=== PATIENT | female | born 1990 | race Caucasian/White ===

== ENCOUNTER 2023-06-21 15:02 | Emergency (ER) | payer BC, SELFPAY ==
[2023-06-21 15:19] VITALS: BP 118/74; PULSE 85; RESP 16; TEMP 37.4; O2SAT 100
--- NOTE | 2023-06-21 15:39 | ED.EAR ---
HPI - Ear Problem General Chief complaint: Ear Stated complaint: Left Ear Irritation Time Seen by Provider: 06/21/23 15:08 Source: patient Mode of arrival: ambulatory Limitations: no limitations History of Present Illness HPI Narrative: Alla is a 32-year-old female patient presenting to the clinic today with complaints of left ear pain x2 weeks. She has been trying to to clean out her ears as she thinks she has a cerumen impaction. Related Data Home Medications Medication Instructions Recorded Confirmed buspirone 15 mg tablet 15 mg PO BID 06/21/23 06/21/23 dextroamphetamine-amphetamine ER 30 mg PO DAILY 06/21/23 06/21/23 30 mg 24hr capsule,extend release Allergies Allergy/AdvReac Type Severity Reaction Status Date / Time No Known Allergies Allergy Verified 06/21/23 15:46 Review of Systems Review of Systems: Pertinent positives per HPI. Patient denies any fever, chills, rash, headache, visual changes, dizziness, cough, runny nose, sore throat, shortness of breath, chest pain, palpitations, nausea, vomiting, diarrhea, constipation, abdominal pain, or any urinary issues. Exam Narrative: General: Well-developed, well nourished, in no apparent distress Head: Normocephalic, atraumatic Eyes: Pupils equally round and reactive to light bilaterally, EOM intact, sclera and conjunctive clear, no discharge, lids normal Ears: Right tMs intact and clear, left TM intact, bulging, fluid noted behind the TM, ear canals clear, no drainage, grossly hearing normal. Nose: Nares patent, no discharge, no inflammation, no sinus tenderness. Mouth: Oropharynx without lesions or masses, good dentition, MMM. Neck: Supple, trachea midline, no enlargement of anterior or posterior cervical nodes, no thyroid masses or goiter palpable. Cardio: Regular rate and rhythm, s1 and s2 normal, no murmur appreciated. Resp: Clear to auscultation bilaterally anteriorly and posteriorly, no rhonchi, rales, wheezing or rubs Course Course Emergency Course: Portions of this record may have been created with voice recognition software. Level of Care: Express Care Visit Vital Signs Vital signs: Vital Signs Temperature 37.4 C 06/21/23 15:19 Pulse Rate 85 06/21/23 15:19 Respiratory Rate 16 06/21/23 15:19 Blood Pressure 118/74 06/21/23 15:19 Pulse Oximetry 100 06/21/23 15:19 Oxygen Delivery Room Air 06/21/23 15:19 Temperature 37.4 C 06/21/23 15:19 Pulse Rate 85 06/21/23 15:19 Respiratory Rate 16 06/21/23 15:19 Blood Pressure 118/74 06/21/23 15:19 Pulse Oximetry 100 06/21/23 15:19 Oxygen Delivery Room Air 06/21/23 15:25 Vital signs reviewed Medical Decision Making MDM Narrative Medical decision making narrative: At the time of visit patient is resting comfortably on the exam table. Patient appears to be nontoxic. I suspect patient has serous otitis. Supportive measures were discussed. Prescription for prednisone was sent to the pharmacy. Supportive measures were discussed with the patient and they voiced understanding discharge instructions and agrees to treatment plan. Return precautions reviewed Differential Diagnosis Differential Diagnosis: Otitis media, otitis externa, eustachian tube dysfunction, cerumen impaction, upper respiratory infection, serous otitis Vital Signs Vital Signs: Vital Signs Temperature 37.4 C 06/21/23 15:19 Pulse Rate 85 06/21/23 15:19 Respiratory Rate 16 06/21/23 15:19 Blood Pressure 118/74 06/21/23 15:19 Pulse Oximetry 100 06/21/23 15:19 Oxygen Delivery Room Air 06/21/23 15:19 Temperature 37.4 C 06/21/23 15:19 Pulse Rate 85 06/21/23 15:19 Respiratory Rate 16 06/21/23 15:19 Blood Pressure 118/74 06/21/23 15:19 Pulse Oximetry 100 06/21/23 15:19 Oxygen Delivery Room Air 06/21/23 15:25 Discharge Plan Discharge Clinical Impression: Acute serous otitis media Qualifiers: Laterality: left Recurrence
== END 2023-06-21 15:45 | disposition home or self-care (01) ==
PROVIDERS: Emergency Provider Nurse Practitioner Family
DX: H65.02 Acute serous otitis media, left ear (principal)
CPT/HCPCS: 99213; G0463

== ENCOUNTER 2023-06-30 09:48 | Outpatient (CLI) | payer BC, SELFPAY ==
[2023-06-30 10:12] LABS: Basophils Absolute Auto 0.1 K/mm3 (0.0-0.1); Basophils Percent Auto 0.6 % (0.2-1.2); Eosinophils Absolute Auto 0.2 K/mm3 (0-0.3); Hematocrit 42.5 % (37.0-47.0); Hemoglobin 13.7 g/dL (12.0-15.0); Immature Granulocyte Absolute 0.02 K/mm3 (0.00-0.031); Immature Granulocyte Percent A 0.2 % (0-0.5); Lymphocytes Absolute Auto 2.76 K/mm3 (0.9-3.2); Lymphocytes Percent Auto 29.4 % (18.3-44.2); Mean Corpuscular HGB Conc 32.2 g/dl (32-36); Mean Corpuscular Hemoglobin 29.8 pg (26-34); Mean Corpuscular Volume 92.4 fl (80-100); Mean Platelet Volume 10.7 fl (7.4-10.4); Monocytes Absolute Auto 0.9 K/mm3 (0.1-0.6); Monocytes Percent Auto 9.1 % (2.6-8.5); Neutrophils Absolute Auto 5.5 K/mm3 (1.3-6.7); Neutrophils Percent Auto 58.7 % (45.5-73.1); Platelet Count Result 252 k/mm3 (150-375); Red Cell Distribution Width 12.7 % (11.5-14.5); White Blood Count 9.4 K/mm3 (4.5-10.0)
[2023-06-30 10:22] LABS: Alanine Aminotransferase 17 U/L (6-35); Albumin Level 4.2 g/dL (3.5-5.1); Alkaline Phosphatase 57 U/L (38-126); Anion Gap 10 mmol/L (8-16); Aspartate Amino Transferase 18 U/L (14-36); Bilirubin,Total 0.5 mg/dL (0.2-1.3); Blood Urea Nitrogen 13 mg/dL (7-17); Calcium 9.1 mg/dL (8.4-10.2); Carbon Dioxide 26 mmol/L (22-30); Chloride 102 mmol/L (98-107); Cholesterol 191 mg/dL (0-200); Estimated Glomerular Filt Rate > 60; Glucose 90 mg/dL (65-110); HDL Direct 84 mg/dL; Potassium 3.9 mmol/L (3.4-5.0); Sodium 138 mmol/L (137-145); Triglycerides 88 mg/dL (<150)
[2023-06-30 10:33] LABS: LDL Cholesterol Direct 86 mg/dL
== END 2023-06-30 09:49 | disposition home or self-care (01) ==
PROVIDERS: PCP Internal Medicine; Visit Provider Internal Medicine
DX: Z00.00 Encounter for general adult medical examination without abnormal findings (principal); Z13.220 Encounter for screening for lipoid disorders; E53.8 Deficiency of other specified B group vitamins
CPT/HCPCS: 36415; 80053; 80061; 82607; 85025

== ENCOUNTER 2023-12-22 11:29 | Outpatient (CLI) | payer OTHER, SELFPAY | END 2023-12-22 11:30 | disposition home or self-care (01) | LOC: ANHLAB 11:33 | PROVIDERS: PCP Internal Medicine; Visit Provider Internal Medicine | DX: E53.8 Deficiency of other specified B group vitamins (principal) | CPT/HCPCS: 36415; 82607 ==

== ENCOUNTER 2024-01-03 09:16 | Outpatient (CLI) | payer OTHER, SELFPAY ==
[2024-01-03 10:28] LABS: Basophils Percent Auto 0.8 % (0.2-1.2); Eosinophils Absolute Auto 0.1 K/mm3 (0-0.3); Hematocrit 43.5 % (37.0-47.0); Hemoglobin 13.9 g/dL (12.0-15.0); Immature Granulocyte Absolute 0.01 K/mm3 (0.00-0.031); Immature Granulocyte Percent A 0.2 % (0-0.5); Lymphocytes Absolute Auto 1.34 K/mm3 (0.9-3.2); Mean Corpuscular Hemoglobin 29.7 pg (26-34); Mean Corpuscular Volume 92.9 fl (80-100); Mean Platelet Volume 11.7 fl (7.4-10.4); Monocytes Absolute Auto 0.4 K/mm3 (0.1-0.6); Monocytes Percent Auto 7.5 % (2.6-8.5); Neutrophils Absolute Auto 3.1 K/mm3 (1.3-6.7); Neutrophils Percent Auto 62.5 % (45.5-73.1); Platelet Count Result 234 k/mm3 (150-375); Red Blood Count 4.68 M/mm3 (4.2-5.4); Red Cell Distribution Width 12.6 % (11.5-14.5)
[2024-01-03 10:42] LABS: Magnesium 1.9 mg/dL (1.6-2.3)
[2024-01-03 11:12] LABS: Thyroid Stimulating Hormone 0.725 uIU/mL (0.465-4.680)
[2024-01-03 11:16] LABS: Free T4 Free Thyroxine 1.19 ng/mL (0.78-2.19)
== END 2024-01-03 09:17 | disposition home or self-care (01) ==
PROVIDERS: PCP Internal Medicine; Visit Provider Internal Medicine
DX: R53.83 Other fatigue (principal)
CPT/HCPCS: 36415; 83735; 84439; 84443; 85025

== ENCOUNTER 2024-07-16 13:51 | Emergency (ER) | payer OTHER, SELFPAY ==
--- NOTE | ~2024-07-16 | XR_ITS ---
CHEST RADIOGRAPH, PA AND LATERAL CLINICAL HISTORY: sob, flu . COMPARISON: None available TECHNIQUE: PA and lateral views of the chest. FINDINGS The cardiomediastinal silhouette is unremarkable. The lungs are clear. Visualized osseous structures and soft tissues are unremarkable. IMPRESSION: No focal infiltrate or effusion. Reviewed, dictated and finalized at location A. [facility]
--- OUTSIDE RECORDS SUMMARY | 2024-07-16 13:53 | XMS_ITS | Referral Summary ---
Author Organization [facility] Medical Office Building [address] Address [address] [place] [address] Care Team Providers Care Fur Nailer Name Role Phone Carmita Garcia Primary Care Provider [phone]- [phone] DinAmanda colbert F Unavailable Encounters Date Type Department Care Team Description 07/14/2024 Telephone [facility] Occupatinal [facility] [address] [facility] [address] (Third Floor) [place] [address] Gabby Vazquez, [place] Employee Screening from Last 3 Months Allergies No known active allergies Medications levonorgestreL-eth inyl estrad (Lessina) 0.1-20 mg-mcg per tablet Take 1 tablet by mouth daily 84 tablet 3 0 Active dextroamphetamine- amphetamine XR (ADDERALL XR) 25 mg 24 hr capsuleIndications :Attention deficit hyperactivity disorder (ADHD), predominantly inattentive type Take 1 capsule (25 mg total) by mouth daily 30 capsule 2 Active Active Problems Problem Noted Date Diagnosed Date Anxiety 03/19/2021 Assessment & Plan (03/19/2021 12:19 PM CDT): Counseling resources provided. Encourage healthy diet, exercise, sleep hygiene. Return precautions discussed. Attention deficit hyperactivity disorder (ADHD) 12/22/2019 Assessment & Plan (03/19/2021 12:19 PM CDT): Continue current regimen. You are being prescribed a controlled substance as part of your treatment regimen. This medication must be taken only as prescribed as controlled substances can have the potential for abuse, dependency and addiction. Failure to follow my recommendations for the use and appropriate office follow-up of this medication may prohibit me from prescribing controlled substances in the future. You need to have an office visit every 3-6 months and you can request refills at the appropriate time between visits. Assessment & Plan (09/19/2020 9:30 AM CDT): Alla was contacted today via video visit for follow up on ADHD. 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 She has instead been drinking a cup of coffee during her shift and this seems to help. Would like to continue Adderall XR at the 25 mg dosing only. Recheck 6 months, or sooner if needed. You are being prescribed a controlled substance as part of your treatment regimen. This medication must be taken only as prescribed as controlled substances can have the potential for abuse, dependency and addiction. Failure to follow my recommendations for the use and appropriate office follow-up of this medication may prohibit me from prescribing controlled substances in the future. You need to have an office visit every 3 months and you can request refills at the appropriate time between visits. Assessment & Plan (07/24/2020 10:24 AM LABEL PRINTER): Has been doing well on Adderall XR 25 mg daily, but feels that symptoms are no longer controlled for full amount of time. Previously, lasted until 5-6am but now lasting only until 2-3am and using caffeine to extend effect of medication. Only taking medication when working or when having classes. Not planning on taking medication for the next 3 weeks due to wedding and honeymoon. Therefore, follow up encouraged in 2 months. Assessment & Plan (04/22/2020 8:50 AM LABEL PRINTER): Doing well on Adderall. 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 Is interested in small dose increase to help with overall effectiveness. Denies s/e. Will increase, Adderall XR 25 mg daily. Use and precautions of medication(s) discussed. Recheck 3 months or sooner if needed. You are being prescribed a controlled substance as part of your treatment regimen. This medication must be taken only as prescribed as controlled substances can have the potential for abuse, dependency and addiction. Failure to follow my recommendations for the use and appropriate office follow-up of this medication may prohibit me from prescribing controlled substances in the future. You need to have an office visit every 3-6 months and you can request refills at the appropriate time between visits. Assessment & Plan (12/22/2019 4:02 PM CDT): Trial of re-starting Adderall. Use and precautions of medication(s) discussed. Monitor for change in anxiety level, as we may need to address this further if anxiety worsens. Please message me via [employer] with update in 2 weeks. You are being prescribed a controlled substance as part of your treatment regimen. This medication must be taken only as prescribed as controlled substances can have the potential for abuse, dependency and addiction. Failure to follow my recommendations for the use and appropriate office follow-up of this medication may prohibit me from prescribing controlled substances in the future. You need to have an office visit every 3 months and you can request refills at the appropriate time between visits. BMI 22.0-22.9, adult 12/22/2019 Assessment & Plan (04/22/2020 8:50 AM LABEL PRINTER): Discussed healthy diet and importance of regular physical activity. Recent weight loss noted to be intentional by patient in preparation for her wedding. Does not feel that medication is suppressing her appetite. Assessment & Plan (12/22/2019 4:01 PM CDT): Discussed healthy diet and importance of regular physical activity. Immunizations Name Administration Dates Next Due Influenza, Unspecified 03/13/2021,04/08/2020,06/2019 Pfizer SARS-CoV-2 Monovalent Vaccination (12+ Yrs) PURPLE 06/24/2020,06/02/2020 Tdap 07/13/2013 Social History Tobacco Use Types Packs/Day Years Used Date Smoking Tobacco: Never Smokeless Tobacco: Never Alcohol Use Standard Drinks/Week Comments Yes 3 (1 standard drink = 0.6 oz pur e alcohol) socially PHQ-2 Answer Date Recorded PHQ-2 Total Score (If total score is 3 or more points, staff should administer the PHQ-9) 0 04/22/2020 Exercise Vital Sign Answer Date Recorde d On average, how many days pe r week do you engage in moderate to strenuous exercise (like a brisk walk)? 4 days 05/08/2020 On average, how many minutes do you engage in exercise at this level? 30 min 05/08/2020 Comments No Sex and Gender Information Value Date Recorded Sex Assigned at Not on file Legal Sex Female 1:43 AM LABEL PRINTER Gender Identity Female 12/22/2019 1:59 PM CDT Sexual Orientation Straight 12/22/2019 1: 59 PM CDT Last Filed Vital Signs Vital Sign Reading Time Taken Comments Blood Pressure 112/84 03/19/2021 11:23 AM CDT Pulse 96 03/19/2021 11:23 AM CDT Temperature - - Respiratory Rate - - Oxygen Saturation 97% 03/19/2021 11:23 AM CDT Inhaled Oxygen Concentration - - Weight 64 kg (141 lb 3.2 oz) 03/19/2021 11:23 AM CDT Height 170.2 cm (5' 7 ) 03/19/2021 11:23 AM CDT Body Mass Index 22.12 03/19/2021 11:23 AM CDT Plan of Treatment Not on file Procedures Procedure Name Priority Date/Time Associated Diagnosis Comments THINPREP PAP Routine 05/19/2018 from Last 3 Months or Most Recently Relevant to Health Maintenance Results * ThinPrep Pap (05/19/2018) 05/19/2018 Narrative Kayleigh Proctor MA - 05/19/2018 Gynecologic Cytology Report Case: [id number] Authorizing Provider: Florinda Lincoln, Collected: 05/19/2018 10:20 AM Ordering Location: [facility] Obstetrics Received: 05/20/2018 12:24 PM Gynecology and Women's Health First Screen: Arslan Ambrocio Specimen: THINPREP - IMAGE GUIDED, Cervix/Endocervix LMP n/a Menstrual Status None Applicable Specimen Adequacy Satisfactory for evaluation, endocervical/transformation zone component present. Categorization Negative for intraepithelial lesion or malignancy. Interpretation HEART COORDINATOR Negative for intraepithelial lesion or malignancy. Other Predominance of Coccobacilli consistent with shift in vaginal jonas (vaginosis). Pap Footnote This specimen was evaluated by the ThinPrep Imaging System along with the an additional manual rescreening by a commercial leasing manager and/or pathologist. Embedded Images Specimen Collected on Pathology/Cytology - Miscellaneous samples (specimen) 05/19/2018 10:20 AM Historical Provider LAB PATHOLOGY ORDERABLES Final Result from Last 3 Months or Most Recently Relevant to Health Maintenance Insurance [facility] EMPL[employer]EE HEALTH PLANS Address: [facility] [id number] [place] [id number] [facility] [employer] [employer] Address: [facility] [id number] [place] [id number] Care Teams Fur Nailer Relationship Specialty Start Date End Date Carmita Garcia DO [address] [place] [facility] [place] [address] PCP - General Family Medicine 12/18/19 Amanda Arevalo [address] [place] [address] [address] [address] 12/18/19
--- OUTSIDE RECORDS SUMMARY | 2024-07-16 13:53 | XMS_ITS | Clinical Summary ---
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 She has instead been drinking a cup [...] visits. Assessment & Plan (07/24/2020 10:24 AM APPLIANCE SALES ASSOCIATE): Has been doing well on Adderall XR [...] months. Assessment & Plan (04/22/2020 8:50 AM APPLIANCE SALES ASSOCIATE): Doing well on Adderall. 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 Please message me via [employer] with update in 2 weeks. You are [...] 12/22/2019 Assessment & Plan (04/22/2020 8:50 AM APPLIANCE SALES ASSOCIATE): Discussed healthy diet and importance of regular physical activity. Recent weight loss noted to be intentional by patient in preparation for her wedding. Does not feel that medication is suppressing her appetite. Assessment & Plan (12/22/2019 4:01 PM CDT): Discussed healthy diet and importance of regular physical activity. Encounters Date Type Department Care Team Description 07/14/2024 Telephone [facility] Occup[facility]unc health rex Health [address] [facility] [address] (Third Floor) [place] [address] Gabby Vazquez, [place] Employee Screening from Last 3 Months Immunizations Name Administration Dates Next Due Influenza, Unspecified 03/13/2021,04/08/2020,06/2019 Pfizer SARS-CoV-2 Monovalent Vaccination (12+ Yrs) PURPLE 06/24/2020,06/02/2020 Tdap 07/13/2013 Surgical History Surgery Date Site/Laterality Comments MYRINGOTOMY W/ TUBES Myringotomy - (Added by TW Conv) SKIN GRAFT ABCESS DRAINAGE Medical History Medical History Date Comments 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 anxiety - (Added by TW Conv) ADHD (attention deficit hype ractivity disorder) History of MRSA infection Family History Medical History Relation Name Comments No Known Problems Father Brain cancer Maternal Grandfather Hypertension Maternal Grandmother Ruth Bailey Kidney disease Maternal Grandmother Ruth Bailey No Known Problems Mother Breast cancer Paternal Grandmother 70 (Added by TW Con v) Heart attack Paternal Grandmother 70 (Added by TW Conv ) Heart disease Paternal Grandmother 70 (Added by TW Con v) Hypertension Paternal Grandmother 70 (Added by TW Conv ) Relation Name Status Comments Father Maternal Grandfather Maternal Grandmother Ruth Bailey Mother Paternal Grandmother 70 (Added by TW Conv) Social History Tobacco Use Types Packs/Day Years [...] on file Legal Sex Female 1:43 AM APPLIANCE SALES ASSOCIATE Gender Identity Female 12/22/2019 1:59 PM CDT Sexual Orientation Straight 12/22/2019 1: 59 PM CDT Obstetrics History Para Term AB IAB SAB Ectopic Multiple Livin g Live Births 0 0 0 0 0 0 0 0 0 0 0 Last Filed Vital Signs Vital Sign Reading [...] 03/19/2021 11:23 AM CDT Plan of Treatment Health Maintenance Due Date Last Done Comments Hepatitis C Screening 1990 Hepatitis B Screening 2008 Cervical Cancer Screening 05/19/20192017, 05/19/2018 Depression Screening 04/22/2021 04/22/2020, 12/22/2019 Regular Well Visit/Exam 18-64 05/08/2021 05/08/2020 DTaP/Tdap/Td Vaccine (2 - Td or Tdap) 07/13/2023 07/13/2013 Covid-19 Vaccine (3 - season) 2024 06/24/2020, 06/02/2020 Influenza Vaccine (#1) 2024 , 04/08/2020, 03/07/2020 HPV Vaccines Aged Out No longer eligi ble based on patient's age to complete this topic Pneumococcal vaccine <65 Aged Out No longer eligible based on patient's age to complete this topic Varicella Vaccines Discontinued Procedures Procedure Name Priority Date/Time Associated Diagnosis Comments THINPREP PAP Routine 05/19/2018 from Last 3 Months or Most Recently Relevant to Health Maintenance Results * ThinPrep Pap (05/19/2018) 05/19/2018 Narrative Kayleigh Proctor MA - 05/19/2018 Gynecologic Cytology Report Case: [id number] Authorizing Provider: Florinda Lincoln, Collected: 05/19/2018 10:20 AM Ordering Location: [facility] Obstetrics Received: 05/20/2018 12:24 PM Gynecology and Women's Health First Screen: Arslan Ambrocio Specimen: THINPREP - IMAGE GUIDED, Cervix/Endocervix LMP n/a Menstrual Status None Applicable Specimen Adequacy Satisfactory for evaluation, endocervical/transformation zone component present. Categorization Negative for intraepithelial lesion or malignancy. Interpretation COMBINATION WINDOW INSTALLER Negative for intraepithelial lesion or malignancy. Other Predominance of Coccobacilli consistent with shift in vaginal jonas (vaginosis). Pap Footnote This specimen was evaluated by the ThinPrep Imaging System along with the an additional manual rescreening by a fan installer and/or pathologist. Embedded Images Specimen Collected on Pathology/Cytology - Miscellaneous samples (specimen) 05/19/2018 10:20 AM Historical Provider MD LAB PATHOLOGY ORDERABLES Final Result from Last 3 Months or Most Recently Relevant to Health Maintenance Insurance [facility] [place] EMPLOYEE HEALTH PLANS Address: [facility] [address] [place] [address] [facility] [place] [employer] Address: [facility] [id number] [place] [address] [id number] Care Teams Casket Inspector Relationship Specialty Start Date End Date Carmita Garcia DO [address] [place] [address] PCP - General Family Medicine 12/18/19 [place] [address] [id number] 12/18/19
[2024-07-16 13:55] VITALS: BP 116/80; PULSE 114; RESP 17; TEMP 36.9; O2SAT 99
--- NOTE | 2024-07-16 15:01 | ED.URI ---
HPI - URI/Sore Throat General Chief Complaint: Upper Respiratory Infection Stated Complaint: sob, flu A + Time Seen by Provider: 07/16/24 14:54 History of Present Illness HPI Narrative: 34-year-old female presenting to the emergency department with continued flu-like symptoms. She tested positive for influenza on , reports shortness of breath and tachycardia with exertion, congestion. Nonproductive cough. She feels chest rattling and wheezing. Was otherwise in her normal state of health. 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 Denies any chest pain, nausea, vomiting, diarrhea or abdominal discomfort. No allergies to her knowledge. Did receive her flu vaccine. Related Data Home Medications ?Medication ?Instructions ?Recorded ?Confirmed ?Last Taken ?Type magnesium 200 mg tablet 200 mg PO DAILY 01/03/24 01/03/24 Unknown History Allergies Allergy/AdvReac Type Severity Reaction Status Date / Time No Known Allergies Allergy Verified 07/16/24 15:09 Review of Systems Review of Systems: As reviewed above in HPI [facility] Past Medical History Medical History MRSA (methicillin resistant staph aureus) culture positive Surgical History Surgical History Patent pressure equalization (PE) tube Family History Family History Grandparent Diabetes mellitus Grandparent Breast cancer Grandparent Hypertension Grandparent Heart disease Social History Social History Smoking packs per day: 0 Smoking cigarettes per day: 0.0 Years smoked: 0 Smoking pack-years: 0.00 Smoking status: Never smoker Second hand tobacco smoke exposure: No Alcohol intake: current Drinks per week: 2 Substance use: never Substance use type: does not use Do You Feel Safe in your Home?: Yes Lack of Transportation: No Lack of Food: Never True Current Housing: I Have Housing Concerned About Future Housing: No Difficulty Paying Gas/Electric Bills: No Difficulty Paying for Meds: No Currently Unemployed: No Education: Bachelor's Degree Difficulty w/ Childcare or Family Care: No Living arrangements: with family Occupation/Education: occupation Gender identity (if verbalized by the patient): Female Sexual Orientation (if Verbalized by the Patient): Straight or Heterosexual Exam Narrative: GENERAL: [Well-appearing, well-nourished, and in no acute distress.] HEAD: [Normocephalic, atraumatic.] EYES: [PERRLA and EOMI.] ENT: Nares clear, no rhinorrhea or epistaxis. Mucous membranes moist. Congested-sounding upper airways NECK: Supple. CHEST: Coarse breath sounds with some rhonchi but no wheezing or prolonged expiratory phase, no respiratory distress. HEART: Tachycardic rate but regular rhythm. No murmur heard. [Normal peripheral pulses.] ABDOMEN: [Soft, nondistended], [nontender], [No rigidity or guarding] EXTREMITIES: Normal range of motion. [No edema.] SKIN: Warm, dry, no rash. NEURO: [No focal deficits]. Alert and oriented [x3.] PSYCH: [Normal mood and affect.] Course Vital Signs Vital signs: Vital Signs Temperature 36.9 C 07/16/24 13:55 Pulse Rate 114 H 07/16/24 13:55 Respiratory Rate 17 07/16/24 13:55 Blood Pressure 116/80 07/16/24 13:55 Pulse Oximetry 99 07/16/24 13:55 Oxygen Delivery Room Air 07/16/24 13:55 Temperature 36.9 C 07/16/24 13:55 Pulse Rate 97 07/16/24 15:09 Respiratory Rate 20 07/16/24 15:09 Blood Pressure 110/83 07/16/24 15:09 Pulse Oximetry 97 07/16/24 15:09 Oxygen Delivery Room Air 07/16/24 15:07 MDM - URI/Sore Throat MDM Narrative Medical decision making narrative: 34-year-old female presenting to the ER with continued flu-like symptoms for last 4 days. She sources congestion in her chest and wheezing with exertion and shortness of breath. She otherwise is well appearing, conversant full signs of any dyspnea. Slightly tachycardic but afebrile, normal vital signs otherwise. Some asymmetric rhonchorous breath sounds but no signs of respiratory distress. She is congested in the upper airways as well. Patient did test positive for influenza a and negative for COVID and RSV. Two-view chest x-rays obtained to make sure there is no consolidative process versus pneumonia and patient would likely benefit from some back treatments including steroids and decongestants. Chest x-rays independent reviewed and shows no focal consolidations, pneumonia, bronchial thickening or any other concerning features. Confirmed by radiology with no acute process. Patient is safe and stable for discharge home at this time will be given prescriptions for Medrol Dosepak and she will get [id number] decongestants. Patient comfortable with this plan and safely discharged home at this time. Medical Records Attestation: I reviewed the patient's medical records. Imaging Data Attestation: I personally reviewed and interpreted this imaging study as follows: My impression: Impressions Chest X-Ray 07/16/24 15:54 IMPRESSION: No focal infiltrate or effusion. Discharge Plan Discharge Clinical Impression: Influenza A Patient Disposition: Home, Self-Care Condition: Stable Instructions: Antibiotic Form, Influenza (ED) Additional Instructions: Your chest x-ray was reassuring, no consolidations or effusions, no pneumonia. Continue taking [id number] decongestants or pseudoephedrine behind the counter for symptom relief in addition to the Medrol Dosepak for inflammation control, Tylenol and ibuprofen for fever pain. Follow-up with regular doctor return if you develop any new or worsening symptoms. Patient Language: Citizen [place] Prescriptions: New methylprednisolone [Medrol (Jadiel)] 4 mg tablets,dose pack See Rx Instructions .ROUTE .COMPLEX Qty: 21 0RF Rx Instructions: orally per package directions No Action magnesium 200 mg tablet 200 mg PO DAILY buspirone 10 mg tablet 10 mg PO BID PRN (Reason: anxiety) Qty: 60 4RF buspirone 15 mg tablet 15 mg PO BID Qty: 180 3RF cyanocobalamin (vitamin B-12) 1,000 mcg tablet 1,000 mcg PO DAILY Qty: 90 2RF methylprednisolone [Medrol (Jadiel)] 4 mg tablets,dose pack See Rx Instructions PO PER PKG DIR Qty: 21 0RF Rx Instructions: PO PER PKG DIR dextroamphetamine-amphetamine [Adderall] 30 mg tablet 30 mg PO DAILY Qty: 30 0RF Follow-up/Referrals: Ramiro Ott DO [Primary Care Provider] - Time of Disposition: 16:03
[2024-07-16 15:07] VITALS: O2SAT 96
[2024-07-16 15:09] VITALS: BP 110/83; PULSE 97; RESP 20; O2SAT 97
[2024-07-16] MEDS: methylPREDNISolone 4 MG TABLET PO (15:35)
[2024-07-16] MEDS: LORATADINE/PSEUDOEPHEDRINE (*CRX) 10/240 MG TABLET ER 24 HR 1 TAB PO (15:35)
[2024-07-16 16:05] VITALS: BP 132/84; PULSE 80; RESP 16; O2SAT 98
== END 2024-07-16 17:51 | disposition home or self-care (01) ==
PROVIDERS: Emergency Provider Student in an Organized Health Care Education/Training Program; PCP Internal Medicine
DX: J10.1 Influenza due to other identified influenza virus with other respiratory manifestations (principal); Z86.14 Personal history of Methicillin resistant Staphylococcus aureus infection
CPT/HCPCS: 71046; 99283; A9270